=== PATIENT | female | born 1995 | race Caucasian/White ===

== ENCOUNTER 2017-02-15 21:53 | Emergency (ER) | payer MEDICAID ==
[~2017-02-15] VITALS: Ht 167.6 cm; Wt 65.1 kg
[~2017-02-15 21:53] MED LIST: ACET325T14; ACYC-114 PO; ALBU8.5H5 INH; AMIT50TA PO; CITA20TA9; FAMO-79 PO; FLUO20CA19 PO; FLUO40CA9 PO; FLUT1DIS5 IH; GABA400C PO; HYDR10SO; IBUP200C PO; LORA-445 PO; MONT5TAB9 PO; NITR100C56; NITR100C56 PO; ONDA4TAB7; PANT20TA2 PO; PENT100C2 PO; PROM25TA10 PO; RISP25DI IM; SULF1TAB24 PO; SUMA50TA3 PO; TRAZ100T15 PO; [UNRECOGNIZED DRUG - CODE]; [UNRECOGNIZED DRUG - OTHER]; [UNRECOGNIZED DRUG - OTHER] PO; florinef; pyridium
[2017-02-15 21:54] VITALS: BP 103/67
[2017-02-15] MEDS ORDERED: BACITRACIN ZINC OINT 500U/GM, 0.9 GM ONE (22:28)
== END 2017-02-15 23:38 | disposition home or self-care (01) ==
LOC: ED 23:00
DX: M79.671 Pain in right foot (principal); J45.909 Unspecified asthma, uncomplicated; X58.XXXA Exposure to other specified factors, initial encounter; Y93.89 Activity, other specified; Y99.8 Other external cause status; Y92.099 Unspecified place in other non-institutional residence as the place of occurrence of the external cause
CPT/HCPCS: 99283

== ENCOUNTER 2017-07-24 15:58 | Emergency (ER) | payer MEDICAID, OTHER ==
[~2017-07-24] VITALS: Ht 167.6 cm; Wt 69.1 kg
[~2017-07-24 15:58] MED LIST changes: -IBUP200C PO; +IBUP200C5 PO
[2017-07-24] MEDS ORDERED: FAMOTIDINE 20 MG/2 ML IVP ONE (16:30)
[2017-07-24] MEDS ORDERED: ARIP400S3 IM (16:30)
[2017-07-24] MEDS ORDERED: BUDE90AE INH (16:30)
[2017-07-24] MEDS ORDERED: SODIUM CHLORIDE FLUSH 10ML SYR IVF ONE (16:30)
[2017-07-24] MEDS ORDERED: ONDANSETRON 2MG/ML, 2ML IVPush ONE (16:30)
[2017-07-24 16:42] LABS: BASOPHILS # (AUTO) 0.03 x10^3/uL (0-0.1); BASOPHILS % (AUTO) 0 % (0-1); EOSINOPHILS # (AUTO) 0.07 x10^3/uL (0-0.4); EOSINOPHILS % (AUTO) 1 % (1-7); LYMPHOCYTES % (AUTO) 36 % (22-44); MD NO; MEAN CORPUSCULAR HEMOGLOBIN 26.8 pg (27.0-34.8); MEAN CORPUSCULAR HGB CONC 33.1 g/dL (32.4-35.8); MEAN CORPUSCULAR VOLUME 81.2 fL (80-100); MEAN PLATELET VOLUME 9.7 fL (7.4-10.4); MONOCYTES # (AUTO) 0.25 x10^3/uL (0.2-0.8); MONOCYTES % (AUTO) 3 % (2-9); NEUTROPHILS # (AUTO) 4.34 x10^3/uL (1.8-6.8); NEUTROPHILS % (AUTO) 60 % (42-75); PLATELET COUNT 215 x10^3/uL (130-400); RED BLOOD COUNT 4.84 x10^6/uL (3.82-5.3); RED CELL DISTRIBUTION WIDTH 14.4 % (9.6-15.2)
[2017-07-24] MEDS ORDERED: ONDANSETRON 2MG/ML, 2ML ONE (16:42)
[2017-07-24] MEDS ORDERED: FAMOTIDINE 20 MG/2 ML ONE (16:42)
[2017-07-24 16:52] LABS: ALANINE AMINOTRANSFERASE 22 U/L (12-78); ALBUMIN 3.8 g/dL (3.4-5.0); ANION GAP 5 mmol/L (5-15); CALCIUM 8.4 mg/dL (8.5-10.1); CHLORIDE 110 mmol/L (98-107); CREATININE 0.69 mg/dL (0.55-1.02)
[2017-07-24 16:57] LABS: ALKALINE PHOSPHATASE 60 U/L (45-117); BILIRUBIN,TOTAL 0.8 mg/dL (0.2-1.0); TOTAL PROTEIN 7.5 g/dL (6.4-8.2); TROPONIN I < 0.015 ng/mL (0.000-0.045)
[2017-07-24 17:38] LABS: CULTURE INDICATED? YES; MICROSCOPIC INDICATED
[2017-07-24 19:45] VITALS: BP 107/66
== END 2017-07-24 19:47 | disposition home or self-care (01) ==
LOC: ED 17:14
DX: S16.1XXA Strain of muscle, fascia and tendon at neck level, initial encounter (principal); S39.012A Strain of muscle, fascia and tendon of lower back, initial encounter; R10.9 Unspecified abdominal pain; G43.909 Migraine, unspecified, not intractable, without status migrainosus; J45.909 Unspecified asthma, uncomplicated; Z88.0 Allergy status to penicillin; Z88.5 Allergy status to narcotic agent; Z88.6 Allergy status to analgesic agent; Z88.8 Allergy status to other drugs, medicaments and biological substances; V43.62XA Car passenger injured in collision with other type car in traffic accident, initial encounter; Y93.89 Activity, other specified; Y92.488 Other paved roadways as the place of occurrence of the external cause; Y99.8 Other external cause status
CPT/HCPCS: 36415; 72050; 72110; 80053; 81001; 83690; 83880; 84484; 84703; 85025; 87086; 93005; 96374; 96375; 99285; J2405; S0028

== ENCOUNTER 2020-04-29 20:19 | Emergency (ER) | payer MEDICAID, OTHER ==
[~2020-04-29] VITALS: Ht 167.6 cm; Wt 60.0 kg
[~2020-04-29 20:19] MED LIST changes: +ARIP400S3 IM; +BUDE90AE INH; +IBUP-1623 PO; -IBUP200C5 PO; +TRAZ-175 PO; -TRAZ100T15 PO
--- NOTE | 2020-04-29 20:43 | NUR ---
TYLENOL AT TRIAGE
[2020-04-29] MEDS ORDERED: MECLIZINE CHEWABLE 25 MG TAB PO ONE (21:30)
[2020-04-29 21:57] LABS: ALANINE AMINOTRANSFERASE 17 U/L (12-78); ALBUMIN 4.3 g/dL (3.4-5.0); ANION GAP 7 mmol/L (5-15); CALCIUM 9.4 mg/dL (8.5-10.1); CHLORIDE 110 mmol/L (98-107); CREATININE 0.71 mg/dL (0.55-1.02)
[2020-04-29 21:58] LABS: BASOPHILS % (AUTO) 1 % (0-1); EOSINOPHILS % (AUTO) 2 % (1-7); LYMPHOCYTES % (AUTO) 42 % (22-44); MEAN CORPUSCULAR HEMOGLOBIN 28.5 pg (27.0-34.8); MEAN CORPUSCULAR HGB CONC 33.2 g/dL (32.4-35.8); MEAN PLATELET VOLUME 9.8 fL (7.4-10.4); MONOCYTES % (AUTO) 4 % (2-9); NEUTROPHILS % (AUTO) 51 % (42-75); PLATELET COUNT 215 x10^3/uL (130-400); RED BLOOD COUNT 4.85 x10^6/uL (3.82-5.3); RED CELL DISTRIBUTION WIDTH 12.5 % (9.6-15.2)
[2020-04-29 22:03] LABS: ALKALINE PHOSPHATASE 52 U/L (45-117); BILIRUBIN,TOTAL 0.8 mg/dL (0.2-1.0); TOTAL PROTEIN 7.9 g/dL (6.4-8.2)
[2020-04-29 22:05] LABS: MD NO
[2020-04-29] MEDS ORDERED: MECLIZINE CHEWABLE 25 MG TAB ONE (22:25)
[2020-04-29 23:52] VITALS: BP 113/70
== END 2020-04-30 00:24 | disposition home or self-care (01) ==
LOC: ED 22:47
DX: G43.C0 Periodic headache syndromes in child or adult, not intractable (principal); R10.84 Generalized abdominal pain; R42 Dizziness and giddiness; K05.10 Chronic gingivitis, plaque induced; R94.31 Abnormal electrocardiogram [ECG] [EKG]; J45.909 Unspecified asthma, uncomplicated; Z90.89 Acquired absence of other organs
CPT/HCPCS: 36415; 80053; 83690; 84703; 85025; 93005; 99284

== ENCOUNTER 2020-05-17 18:57 | Emergency (ER) | payer MEDICAID ==
--- NOTE | 2020-05-17 19:04 | NUR ---
NIL FOR TRIAGE AT THIS TIME
[2020-05-17 19:06] VITALS: BP 128/68
== END 2020-05-17 21:14 | disposition home or self-care (01) ==
LOC: ED 20:40
DX: B34.9 Viral infection, unspecified (principal); R06.02 Shortness of breath; R09.81 Nasal congestion; J45.909 Unspecified asthma, uncomplicated; Z90.89 Acquired absence of other organs
CPT/HCPCS: 71046; 93005; 99283

== ENCOUNTER 2020-07-09 03:35 | Emergency (ER) | payer MEDICAID ==
[~2020-07-09] VITALS: Ht 167.6 cm; Wt 60.1 kg
[2020-07-09] MEDS ORDERED: ONDANSETRON 2MG/ML, 2ML ONE (05:13)
[2020-07-09] MEDS ORDERED: KETOROLAC 30 MG/1 ML ONE (05:13)
[2020-07-09] MEDS ORDERED: KETOROLAC 30 MG/1 ML IVPush ONE (05:30)
[2020-07-09] MEDS ORDERED: ONDANSETRON 2MG/ML, 2ML IV ONE (05:30)
[2020-07-09] MEDS ORDERED: SODIUM CHLORIDE 0.9% 1,000ML IVBOLUS ONE (05:30)
--- NOTE | 2020-07-09 05:52 | NUR ---
pt in room with child, and child is running around room and grabbing supplies off counter and spreading them over room. explained to mother that child needs to behave, and i am unable to care properly under these circumstances. mother refuses to let child go outside with boyfriend. spoke with charge and boyfriend was allowed back to keep child under control. patient is jerking, screaming and crying when attempting iv and covid swab. pt requesting multiple things at a time and is speaking very rapidly. iv was placed, medicated per emar, pt on monitors-but keeps taking the leads off.
[2020-07-09 06:10] LABS: BASOPHILS % (AUTO) 1 % (0-1); EOSINOPHILS % (AUTO) 2 % (1-7); LYMPHOCYTES % (AUTO) 51 % (22-44); MEAN CORPUSCULAR HEMOGLOBIN 29.7 pg (27.0-34.8); MEAN CORPUSCULAR HGB CONC 34.8 g/dL (32.4-35.8); MEAN PLATELET VOLUME 9.9 fL (7.4-10.4); MONOCYTES % (AUTO) 4 % (2-9); NEUTROPHILS % (AUTO) 42 % (42-75); PLATELET COUNT 205 x10^3/uL (130-400); RED BLOOD COUNT 4.57 x10^6/uL (3.82-5.3); RED CELL DISTRIBUTION WIDTH 12.1 % (9.6-15.2)
[2020-07-09 06:16] LABS: ALBUMIN 4.6 g/dL (3.4-5.0); ANION GAP 9 mmol/L (5-15); CALCIUM 9.9 mg/dL (8.5-10.1); CHLORIDE 106 mmol/L (98-107); MD NO
[2020-07-09 06:23] LABS: CREATININE 0.84 mg/dL (0.55-1.02); TROPONIN I < 0.015 ng/mL (0.000-0.045)
[2020-07-09] MEDS ORDERED: POTASSIUM CHLORIDE 20 MEQ TAB.ER.PRT PO ONE (06:30)
[2020-07-09] MEDS ORDERED: POTASSIUM CHLORIDE 20 MEQ TAB.ER.PRT ONE (06:34)
--- NOTE | 2020-07-09 07:01 | NUR ---
report from Lynn AHUMADA. ASSUMED CARE OF PATIENT.
[2020-07-09] MEDS ORDERED: HYDROmorphone 1 MG/ML, 1ML INJ ONE (07:41)
[2020-07-09] MEDS ORDERED: PROMETHAZINE 25 MG/ML, 1ML ONE (07:54)
[2020-07-09] MEDS ORDERED: PROMETHAZINE 25 MG/ML, 1ML IM ONE (08:00)
[2020-07-09] MEDS ORDERED: HYDROmorphone 1 MG/ML, 1ML INJ IV ONE (08:00)
--- NOTE | 2020-07-09 08:09 | NUR ---
PT COMPLAINING OF 8/10 PAIN, MEDICATED PER EMAR. AT BEDSIDE, CALL LIGHT WITHIN REACH, CYCLING VITALS AND CONTINUOUS SPO2.
--- NOTE | 2020-07-09 08:35 | NUR ---
PT O2 SAT DROPPED TO 86% WITH DILAUDID, PLACED ON 2L O2 NC. UP TO 96%.
--- NOTE | 2020-07-09 09:06 | NUR ---
pt sleeping comfortably in bed. turned o2 off and she is maintaining her o2 saturation at 97%. at bedside sleeping as well. call light within reach.
[2020-07-09 09:51] VITALS: BP 95/52
== END 2020-07-09 09:56 | disposition home or self-care (01) ==
LOC: ED 05:58
DX: B34.9 Viral infection, unspecified (principal); Z20.822 Contact with and (suspected) exposure to COVID-19; E87.6 Hypokalemia; R05 Cough; R51.9 Headache, unspecified; R06.02 Shortness of breath; Z88.0 Allergy status to penicillin
CPT/HCPCS: 36415; 71045; 80048; 82040; 84484; 84703; 85025; 85379; 87635; 93005; 96361; 96372; 96374; 96375; 99285; J1170; J1885; J2405; J2550; J7030